=== PATIENT | male | born 1955 | race Caucasian/White ===

== ENCOUNTER → 2017-01-01 | Outpatient (CLI) | payer BC ==
--- NOTE | ~2017-01-01 | CT2 ---
[facility] A Service of [facility] RADIOLOGY TEXT RESULTS PATIENT: RICARDO ZUNIGA LOCATION: [facility] : 57 UNIT #: [id number] AGE: [address]: Rome Humphreys MD SEX: M ORDER DR: [id number] [facility]. [place], [place] [address] [id number] MR#: [id number] Acc #: [id number] NAME: RICARDO ZUNIGA : 1955 SEX: M STUDY DATE/TIME: 01/01/2017 9:31 UNIT: [facility] ROOM: STUDY DESCRIPTION: CT Abd and Pelv W Cont Attending Physician: Rome Humphreys M.D. Referring Physician: Rome Humphreys M.D. Ordering Physician: Rome Humphreys M.D. Primary Care Physician: Rome Humphreys M.D. MEDICAL IMAGING REPORT This report is preliminary unless electronic signature is present EXAM CT abdomen and pelvis with contrast DATE 01/01/2017 HISTORY 61-year-old male with complaints of left lower quadrant pain for 1 week. Diarrhea for 2 days. Previous hernia repair. COMPARISON None. PROCEDURE 5 mm axial images from the lung bases through the lesser trochanters after intravenous and enteric contrast administration. Sagittal and coronal reformatted images were obtained. This CT exam was performed with one or more of the following radiation dose reduction techniques: Automatic exposure control, adjustment of mA and/or kV according to patient size, and iterative reconstruction. FINDINGS Focal, acute perforated diverticulitis is demonstrated within the proximal sigmoid colon. A few locules of air are seen within the adjacent pericolonic mesenteric fat with some inflammatory stranding. However, no abscess is seen. The appendix is normal. Lung bases are clear. The liver, gallbladder, spleen, pancreas, adrenals are normal. Small nonobstructing stone in the left mid kidney. Tiny probable cysts in the right kidney. These low-density right renal lesions measure less-than 5 mm in size and are technically too small to [facility] A Service of [facility] RADIOLOGY TEXT RESULTS PATIENT: RICARDO ZUNIGA LOCATION: [facility] : 57 UNIT #: [id number] AGE: [address]: Rome Humphreys MD SEX: M ORDER DR: characterize. PELVIS FINDINGS: Urinary bladder and rectum are normal. Moderate stool burden is seen within the rectum. No pelvic free fluid is identified. IMPRESSION 1. Focal, acute sigmoid diverticulitis with perforation. No abscess. 2. These pertinent findings were called to the office of Dr. Waqar Humphreys today, 01/01/2017 at 13:59. 3. Moderate colonic stool burden. Correlate for constipation. 4. Less-than 5 mm low-density right renal lesions statistically favored to represent cysts. Small nonobstructing left renal stone. 5. Normal appendix. Dictated by... Joyce Aponte M.D. THIS IS AN ELECTRONICALLY VERIFIED REPORT Joyce Aponte M.D. at 01/07/2017 8:37 AM BETH/fox TD: 01/01/2017 17:41 JOB #: [id number] MEDICAL IMAGING REPORT Page 1 of 1 COPY
[2017-01-01 11:36] LABS: POC - GFR >60.0 mL/min (>60)
== END | disposition home or self-care (01) ==
LOC: CCAT 08:00
PROVIDERS: Family Medicine
DX: R10.32 Left lower quadrant pain (principal); R10.2 Pelvic and perineal pain; K57.20 Diverticulitis of large intestine with perforation and abscess without bleeding; N20.0 Calculus of kidney; N28.89 Other specified disorders of kidney and ureter
CPT/HCPCS: 74177; 82565; Q9967